=== PATIENT | male | born 1985 | race Caucasian/White ===

== ENCOUNTER → 2018-12-08 | Outpatient (CLI) | payer MEDICAID, SELFPAY ==
[2018-12-08 10:04] LABS: APPEARANCE, URINE CLEAR (CLEAR); BACTERIA, URINE AUTO NEGATIVE (NEGATIVE); BILIRUBIN, URINE AUTO NEGATIVE (NEGATIVE); BLOOD, URINE BLOOD NEGATIVE (NEGATIVE); COLOR, URINE YELLOW (YELLOW); GLUCOSE, URINE (UA) AUTO NEGATIVE (NEGATIVE); KETONE, URINE AUTO NEGATIVE (NEGATIVE); LEUKOCYTE ESTERASE, URINE AUTO NEGATIVE (NEGATIVE); NITRITE, URINE AUTO NEGATIVE (NEGATIVE); PROTEIN, URINE AUTO NEGATIVE (NEGATIVE); RBC, URINE AUTO 1 /HPF (0-3); SPECIFIC GRAVITY URINE AUTO 1.015 (1.002-1.035); SQUAMOUS EPITHELIAL CELL UR AU 0 /HPF (0-6); UROBILINOGEN, URINE AUTO 0.2 mg/dL (0.0-2.0); WBC, URINE AUTO 0 /HPF (0-3)
[2018-12-08 10:09] LABS: BASO % 0.6 % (0.0-1.0); EOS # 0.2 10^3/uL (0.0-0.50); EOS % 2.6 % (0.0-3.0); HEMATOCRIT 44.5 % (42.0-52.0); HEMOGLOBIN 14.8 g/dl (13.5-17.5); LYMPH # 2.4 10^3/uL (1.5-4.5); LYMPH % 35.5 % (24.0-44.0); MEAN CORPUSCULAR HEMOGLOBIN 31.1 pg (27.0-33.0); MEAN CORPUSCULAR HGB CONC 33.3 g/dl (32.0-36.5); MEAN CORPUSCULAR VOLUME 93.5 fl (80.0-96.0); MONO # 0.6 10^3/uL (0.0-0.8); MONO % 8.9 % (0.0-5.0); NEUTROPHILS # 3.6 10^3/uL (1.8-7.7); PLATELET COUNT, AUTOMATED 265 10^3/uL (150-450); RED BLOOD COUNT 4.76 10^6/uL (4.30-6.10); WHITE BLOOD COUNT 6.9 10^3/uL (4.0-10.0)
[2018-12-08 10:40] LABS: ALBUMIN 4.1 GM/DL (3.2-5.2); ALT/SGPT 28 U/L (12-78); BILIRUBIN,TOTAL 0.3 MG/DL (0.2-1.0); BLOOD UREA NITROGEN 21 MG/DL (7-18); CALCIUM LEVEL 9.6 MG/DL (8.5-10.1); CARBON DIOXIDE LEVEL 29 MEQ/L (21-32); CHLORIDE LEVEL 106 MEQ/L (98-107); CREATININE FOR GFR 1.18 MG/DL (0.70-1.30); GLOMERULAR FILTRATION RATE > 60.0 (>60); GLUCOSE, FASTING 101 MG/DL (70-100); SODIUM LEVEL 141 MEQ/L (136-145); TOTAL PROTEIN 7.5 GM/DL (6.4-8.2)
[2018-12-08 11:01] LABS: HEPATITIS B SURFACE ANTIGEN NEGATIVE (NEGATIVE)
[2018-12-08 11:28] LABS: HEPATITIS B CORE ANTIBODY IGM NEGATIVE (NEGATIVE); HEPATITIS C VIRUS ABY INDEX < 0.0 INDEX (<0.8)
[2018-12-08 11:30] LABS: HEPATITIS A ANTIBODY IGM NEGATIVE (NEGATIVE)
== END ==
LOC: M LAB 09:32
PROVIDERS: ATTEND Physician Assistant Medical
DX: Z02.2 Encounter for examination for admission to residential institution (principal)

== ENCOUNTER 2019-04-18 22:23 | Inpatient (IN) | payer OTHER ==
[~2019-04-18] VITALS: Ht 177.8 cm; Wt 72.7 kg
[2019-04-18] MEDS ORDERED: TRAZ1TAB14 PO (22:51)
[2019-04-18] MEDS ORDERED: CATA0.1T PO (22:51)
[2019-04-18] MEDS ORDERED: BUPR15TA PO (22:51)
[2019-04-18 23:41] LABS: HEMATOCRIT 43.5 % (42.0-52.0); HEMOGLOBIN 14.7 g/dl (13.5-17.5); MEAN CORPUSCULAR HEMOGLOBIN 31.2 pg (27.0-33.0); MEAN CORPUSCULAR HGB CONC 33.8 g/dl (32.0-36.5); MEAN CORPUSCULAR VOLUME 92.4 fl (80.0-96.0); PLATELET COUNT, AUTOMATED 248 10^3/uL (150-450); RED BLOOD COUNT 4.71 10^6/uL (4.30-6.10); WHITE BLOOD COUNT 11.2 10^3/uL (4.0-10.0)
[2019-04-19 00:14] LABS: AMPHETAMINES LEVEL URINE NEGATIVE (NEGATIVE); BARBITURATES URINE NEGATIVE (NEGATIVE); BENZODIAZEPINES URINE NEGATIVE (NEGATIVE); CANNABINOIDS URINE NEGATIVE (NEGATIVE); COCAINE METABOLITE URINE NEGATIVE (NEGATIVE); METHADONE URINE NEGATIVE (NEGATIVE); OPIATES URINE NEGATIVE (NEGATIVE); PHENCYCLIDINE URINE NEGATIVE (NEGATIVE)
[2019-04-19 00:20] LABS: ACETAMINOPHEN LEVEL < 2.0 UG/ML (10.0-30.0); ALT/SGPT 17 U/L (12-78); BILIRUBIN,DIRECT 0.1 MG/DL (0.0-0.2); BILIRUBIN,TOTAL 0.3 MG/DL (0.2-1.0); BLOOD UREA NITROGEN 18 MG/DL (7-18); CALCIUM LEVEL 9.1 MG/DL (8.5-10.1); CARBON DIOXIDE LEVEL 31 MEQ/L (21-32); CHLORIDE LEVEL 108 MEQ/L (98-107); CREATININE FOR GFR 1.41 MG/DL (0.70-1.30); ETHYL ALCOHOL (ETHANOL) < 0.003 % (0.000-0.010); GLOMERULAR FILTRATION RATE > 60.0 (>60); GLUCOSE, FASTING 97 MG/DL (70-100); POTASSIUM SERUM 4.7 MEQ/L (3.5-5.1); SALICYLATE LEVEL 3.1 MG/DL (5.0-30.0); SODIUM LEVEL 143 MEQ/L (136-145); THYROID STIMULATING HORMONE 0.657 uIU/ML (0.358-3.740); TOTAL PROTEIN 7.3 GM/DL (6.4-8.2)
[2019-04-19] MEDS ORDERED: traZODone 50 MG TAB PO ONE ×2 (00:45→19:15)
[2019-04-19] MEDS ORDERED: cloNIDine 0.1 MG TAB PO ONE ×3 (09:00→19:15)
[2019-04-19] MEDS ORDERED: buPROPion **SR TABLET** (ZYBAN) 150MG PO ONE ×2 (09:00→18:00)
--- NOTE | 2019-04-19 19:07 | ECGEPIP ---
[facility] - ED Test Date: 2019-04-19 Pat Name: DUYEN RICARDO Department: Room: - Gender: Male Director Of Scientific Research: MORIS : 1985 Requested By: ZI DANIEL Order Number: [id number] Reading MD: Brandin Del Rosario Measurements Intervals [place] Rate: 69 P: 57 CO: 179 QRS: 79 QRSD: 104 T: 61 QT: 383 QTc: 411 Interpretive Statements SINUS RHYTHM ST changes, likely early repolarization Comparison tracing not on file Electronically Signed on 04-19-2019 19:06:54 EDT by Brandin Del Rosario
[2019-04-20] MEDS ORDERED: CLON-412 PO (08:04)
[2019-04-20] MEDS ORDERED: buPROPion **SR TABLET** (ZYBAN) 150MG PO ONE ×2 (08:30→18:00)
[2019-04-20] MEDS ORDERED: cloNIDine 0.1 MG TAB PO ONE ×2 (09:00→16:00)
[2019-04-20] MEDS ORDERED: OLANZapine ORAL DISINTEGRATING TAB 5MG PO PRN (13:45)
[2019-04-20] MEDS ORDERED: MAALOX 30 ML SUSP *UDC PO PRN (13:45)
[2019-04-20] MEDS ORDERED: MOM 30ML SUSPENSION UDC PO PRN (13:45)
[2019-04-20] MEDS ORDERED: PILL CUTTER 1 EACH XX PRN (14:15)
[2019-04-20 16:30] VITALS: BP 122/63
[2019-04-20] MEDS: cloNIDine 0.1 MG TAB PO SCH ×2 (16:37→21:12)
[2019-04-20] MEDS: buPROPion **SR TABLET** (ZYBAN) 150MG PO SCH (16:44)
[2019-04-20] MEDS: NICOTINE 21MG/24HR 1 EA TRANSDERMAL TD SCH (19:00)
[2019-04-20] MEDS: traZODone 50 MG TAB PO SCH (21:12)
[2019-04-21 06:37] VITALS: BP 115/53
[2019-04-21] MEDS: NICOTINE 21MG/24HR 1 EA TRANSDERMAL TD SCH (08:02)
[2019-04-21] MEDS: buPROPion **SR TABLET** (ZYBAN) 150MG PO SCH ×2 (08:02→15:37)
[2019-04-21] MEDS: cloNIDine 0.1 MG TAB PO SCH ×3 (08:03→21:28)
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
--- NOTE | 2019-04-21 11:48 | HPEPDOC ---
[facility] Medical History & Physical Date of Admission Apr 21, 2019 Date of Service: Apr 21, 2019 Attending Physician: CLAUDIO HERNANDEZ MD History and Physical CHIEF COMPLAINT: Suicidal ideation HISTORY OF PRESENT ILLNESS: 34-year-old male with past medical history of depression, anxiety, drug use, is admitted to inpatient mental health unit for suicidal ideation and "blacking out". He reports abrupt onset suicidal ideation, was told by his girlfriend that was holding a knife to his wrist, doesn't remember because he blacked out. He reports previous episode of depression with similar ideation was years ago. He reports no medical problems, does not take any medication, not related to psychiatric issues. Reports last drug use was a year ago, alcohol use was also a year ago, reports being clean since then. He denies any shortness of breath, chest pain, nausea, vomiting, abdominal pain, diarrhea, constipation. 10 point review of system was negative except for above PAST MEDICAL HISTORY: 1. Anxiety. 2. Depression. 3. Drug abuse. PAST SURGICAL HISTORY: 1. None. SOCIAL HISTORY: Current smoker, 1 pack per day for the past 20 years. Last alcohol use one year ago. Has used multiple drugs in the past, last use 1 year FAMILY HISTORY: No family history of malignancy ALLERGIES: Please see below. HOME MEDICATIONS: Please see below. PHYSICAL EXAMINATION: VITAL SIGNS: Please see below. GENERAL: No distress HEENT: Normocephalic, atraumatic, moist mucous membranes NECK: Supple CARDIOVASCULAR EXAMINATION: S1, S2, no murmurs RESPIRATORY EXAMINATION: Clear to auscultation, no wheezing ABDOMINAL EXAMINATION: Soft, nontender, nondistended, positive bowel sounds EXTREMITIES: Range of motion intact SKIN: No rash NEUROLOGICAL EXAMINATION: Alert and oriented 3, no focal deficits PSYCHIATRIC EXAMINATION: Calm and cooperative LABORATORY DATA: See below. MICROBIOLOGY: Please see below. ASSESSMENT: 34-year-old male with past medical history anxiety, depression and drug use is admitted to [facility] for suicidal ideation. . PLAN: 1. Suicidal ideation/depression. Management as per primary team. 2. Elevated creatinine. Minimally elevated from baseline, likely due to dehydration, patient reports excessive caffeine intake, has multiple cups of coffee and soft drinks in the room. Recommend increased oral fluid intake and decrease caffeine intake. Vital Signs Vital Signs Date Time Temp Pulse Resp B/P (MAP) Pulse Ox O2 Delivery O2 Flow Rate FiO2 04/21/19 08:03 105/66 04/21/19 06:37 98.6 51 16 04/20/19 16:30 99 04/20/19 15:35 Room Air Home Medications Scheduled Bupropion HCl (Wellbutrin Sr) 150 Mg Tab.sr.12h, 150 MG PO BID Clonidine HCl (Catapres) 0.1 Mg Tablet, 0.05 MG PO BID TAKES AM/1600 Clonidine HCl (Clonidine HCl) 0.1 Mg Tablet, 0.2 MG PO QHS Trazodone HCl (Trazodone HCl) 150 Mg Tablet, 150 MG PO QHS Allergies Coded Allergies: No Known Allergies (Verified Allergy, Unknown, 04/18/19) A-FIB/CHADSVASC A-FIB History Current/History of A-Fib/PAF?: No CLAUDIO HERNANDEZ MD Apr 21, 2019 11:48
[2019-04-21] MEDS: HYDROCORTISONE 1% OINTMENT 30GM TOP PRN (12:09)
[2019-04-21] MEDS: hydrOXYzine 25 MG TAB PO PRN (15:36)
[2019-04-21 16:01] VITALS: BP 122/68
[2019-04-21] MEDS: ACETAMINOPHEN TAB 650MG DOSE (2X325MG) PO PRN (20:36)
[2019-04-21] MEDS: traZODone 50 MG TAB PO SCH (21:28)
[2019-04-22 06:17] VITALS: BP 122/60
[2019-04-22] MEDS: buPROPion **SR TABLET** (ZYBAN) 150MG PO SCH ×2 (08:36→15:51)
[2019-04-22] MEDS: hydrOXYzine 25 MG TAB PO PRN ×2 (08:36→21:32)
[2019-04-22] MEDS: NICOTINE 21MG/24HR 1 EA TRANSDERMAL TD SCH (08:36)
[2019-04-22] MEDS: cloNIDine 0.1 MG TAB PO SCH ×3 (08:37→21:33)
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
[2019-04-22 16:07] VITALS: BP 102/62
[2019-04-22] MEDS: ACETAMINOPHEN TAB 650MG DOSE (2X325MG) PO PRN (20:30)
[2019-04-22] MEDS: HYDROCORTISONE 1% OINTMENT 30GM TOP PRN (20:30)
[2019-04-22] MEDS: traZODone 50 MG TAB PO SCH (21:32)
[2019-04-23 05:55] VITALS: BP 110/63
[2019-04-23] MEDS: buPROPion **SR TABLET** (ZYBAN) 150MG PO SCH ×2 (08:55→16:02)
[2019-04-23] MEDS: hydrOXYzine 25 MG TAB PO PRN ×3 (08:56→21:17)
[2019-04-23] MEDS: cloNIDine 0.1 MG TAB PO SCH ×3 (08:56→21:17)
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
[2019-04-23] MEDS: NICOTINE 21MG/24HR 1 EA TRANSDERMAL TD SCH (10:33)
[2019-04-23] MEDS: HYDROCORTISONE 1% OINTMENT 30GM TOP PRN (17:27)
[2019-04-23] MEDS: traZODone 50 MG TAB PO SCH (21:17)
[2019-04-24 06:08] VITALS: BP 111/60
[2019-04-24] MEDS: buPROPion **SR TABLET** (ZYBAN) 150MG PO SCH (08:17)
[2019-04-24 08:19] VITALS: BP 133/75
[2019-04-24] MEDS: NICOTINE 21MG/24HR 1 EA TRANSDERMAL TD SCH (08:19)
[2019-04-24] MEDS: cloNIDine 0.1 MG TAB PO SCH (08:19)
[2019-04-24] MEDS ORDERED: CLON-412 PO (09:12)
[2019-04-24] MEDS ORDERED: BUPR15TA PO (09:12)
[2019-04-24] MEDS ORDERED: HYDR-3363 PO (09:12)
[2019-04-24] MEDS ORDERED: CATA0.1T PO (09:12)
[2019-04-24] MEDS ORDERED: TRAZ1TAB14 PO (09:12)
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
[2019-04-24] MEDS: HYDROCORTISONE 1% OINTMENT 30GM TOP PRN (11:12)
== END 2019-04-24 11:30 | disposition home or self-care (01) | DRG 755 ==
LOC: M ED 22:23 → M ED INP 04-20 13:42 → M PSY 04-20 15:53
PROVIDERS: ADMIT Psychiatry & Neurology Addiction Medicine; ATTEND Psychiatry & Neurology Psychiatry
DX: F43.23 Adjustment disorder with mixed anxiety and depressed mood (principal); F41.9 Anxiety disorder, unspecified; Z81.8 Family history of other mental and behavioral disorders; Z81.4 Family history of other substance abuse and dependence; Z56.0 Unemployment, unspecified; Z79.899 Other long term (current) drug therapy; F32.9 Major depressive disorder, single episode, unspecified; F17.210 Nicotine dependence, cigarettes, uncomplicated; E86.0 Dehydration; R45.851 Suicidal ideations; Z59.0 Homelessness; F15.21 Other stimulant dependence, in remission; Z87.898 Personal history of other specified conditions

== ENCOUNTER 2023-06-13 11:13 | Emergency (ER) | payer OTHER ==
[~2023-06-13] VITALS: Ht 180.3 cm; Wt 72.7 kg
[~2023-06-13 11:13] MED LIST: BUPR15TA PO; CATA0.1T PO; CLON-412 PO; CLON0.2T PO; CLONI1TA PO; HYDR-3363 PO; TRAZ1TAB14 PO; VIST25CA PO
[2023-06-13 13:44] VITALS: BP 141/83; TEMP 98.6; O2SAT 96
== END 2023-06-13 13:44 | disposition home or self-care (01) ==
LOC: M ED 11:13
DX: R20.2 Paresthesia of skin (principal); F41.9 Anxiety disorder, unspecified; F32.A Depression, unspecified; J45.909 Unspecified asthma, uncomplicated; G47.00 Insomnia, unspecified